=== PATIENT | female | born 1990 | race African-American/Black ===

== ENCOUNTER 2017-03-04 15:36 | Emergency (ER) | payer SELFPAY ==
--- NOTE | 2017-03-12 18:52 | ER ---
ADMIT: 03/04/2017 RM/LOC: ER [facility] MR#: [id number] [id number] [place] [address] Emergency Room Report SEX: F AGE: 26 : 1990 DATE: 03/04/2017 ADDENDUM: This patient comes to the ER because she has had the pain in her toes for the last 2 weeks. She states she is an insulin-dependent diabetic, and she has not taken her insulin because she just moved to the area. She denies any injury to her toes and denies any infection. On physical exam, she does have pain in bilateral toes. I do not notice any obvious swelling or signs of infection. It could possibly be neuropathic pain. She did mention about mostly moving to the area and unable to find a primary care physician because she does not have insurance. I told her that we could set her up with the [facility] or the [facility] here. We went back in the room to discuss with her the options for care for her diabetes. She had left our facility. Please see my T-sheet. EVON Fajardo / Xander Nagy MD / vickie JOB #: [id number] CC: Xander Nagy MD, Attending Physician Jacob Purcell MD, Family Physician
== END 2017-03-04 16:00 | disposition home or self-care (01) ==
LOC: ER 15:36
DX: M79.675 Pain in left toe(s) (principal); M79.674 Pain in right toe(s); E11.9 Type 2 diabetes mellitus without complications; Z79.4 Long term (current) use of insulin

== ENCOUNTER 2017-04-02 11:19 | Emergency (ER) | payer SELFPAY | END 2017-04-02 11:38 | disposition left against medical advice (07) | LOC: ER 11:19 | DX: Z53.21 Procedure and treatment not carried out due to patient leaving prior to being seen by health care provider (principal) ==